=== PATIENT | male | born 1955 | race Caucasian/White ===

== ENCOUNTER → 2018-10-26 | Outpatient (CLI) | payer OTHER ==
[~2018-10-26] MED LIST: ASPIR 8181 MG PO; DRAMAMINE PO; FLECAINIDE ACET50 M2 PO; LIPITOR 20 MG T20 M1 PO; SYNTHROID125 MC1 PO; TOPROL XL25 MG PO
--- NOTE | ~2018-10-26 | P ---
[address] [address] [place] [address] PROCEDURE REPORT Name: MACY DOLAN Room #: REG Jorge Kevin#: [id number] Admission: 10/26/18 ������������������ Attend Phys: Ko Merrill MD Discharge: ������������������ Date of : 55 Report #: [id number] THIS REPORT FOR: //name// CC: MARCO Merrill PREOPERATIVE DIAGNOSIS: Palpitation. POSTOPERATIVE DIAGNOSIS: Palpitation. PROCEDURE: The patient was brought to the procedure suite in a fasting and sedated state. He was prepped and draped in a sterile fashion. I injected lidocaine at the incision site. Incision was made. The [employer] confirm implantable loop recorder with a serial #[id number] was injected under the skin without any complications. A single layer of suture was performed and surgical glue was placed to the outer skin layer. The patient had no procedure related complications. The device was set to its nominal settings. CONCLUSIONS: Successful implantation of an implantable loop recorder. ��������������������������������������������� ���������������������������������������� By: ��������������������������������������������� [id number] Ko Merrill MD /nt
[2018-10-26 08:40] VITALS: BP 149/92
== END | disposition home or self-care (01) ==
LOC: CATH 06:54
DX: R00.2 Palpitations (principal); Z79.82 Long term (current) use of aspirin; Z79.899 Other long term (current) drug therapy

== ENCOUNTER 2019-09-07 09:48 | Emergency (ER) | payer OTHER ==
[~2019-09-07] VITALS: Ht 182.9 cm; Wt 93.0 kg
[2019-09-07] MEDS ORDERED: PRADAXA150 MG PO (10:03)
[2019-09-07 10:24] LABS: ABSOLUTE NEUTROPHILS 4.8 thou/uL (1.4-8.2); BASOPHILS 0.5 % (0.0-2.0); EOSINOPHILS 1.2 % (0.0-3.0); HEMATOCRIT 40.8 % (42.0-52.0); HEMOGLOBIN 13.6 gm/dL (14.0-18.0); LYMPHOCYTES 16.3 % (24.0-44.0); MCH 30.9 pg (26.0-34.0); MCHC 33.3 g/dL (28.0-37.0); MCV 92.9 fL (80.0-100.0); MONOCYTES 7.9 % (1.0-8.0); PLATELET COUNT 190 thou/uL (150-400); POLYS 74.1 % (36.0-66.0); RBC 4.39 mil/uL (4.50-6.00); RDW 13.4 % (10.5-14.5); WBC 6.5 thou/uL (4.0-11.0)
[2019-09-07 10:33] LABS: ANION GAP 7 mmol/L (7-16); BUN 22 mg/dL (7-18); CHLORIDE 103 mmol/L (98-107); CO2 29 mmol/L (21-32); CREATININE 1.2 mg/dL (0.7-1.3); GLUCOSE 110 mg/dL (74-106); POTASSIUM 4.5 mmol/L (3.5-5.1); SODIUM 139 mmol/L (136-145)
[2019-09-07 10:41] LABS: TROPONIN-I <0.06 ng/mL (<0.06)
[2019-09-07] MEDS ORDERED: AMOXICILLIN 50500 MG PO (10:46)
[2019-09-07 11:00] VITALS: BP 130/80
--- NOTE | 2019-09-08 08:16 | EKG ---
[facility] [place] [address] ELECTROCARDIOGRAM REPORT Name: MACY DOLAN Room #: DEP [facility]#: [id number] Admission: 09/07/19 Attend Phys: Discharge: 09/07/19 Date of : 55 Report #: [id number] THIS REPORT FOR: cc: MARCO RODRIGUEZ CHRISTOPHER F DO Lundgren, Craig H. MD [facility] THIS REPORT FOR: //name// [facility] ED Test Date: 2019-09-07 Test Time: 09:50:14 Pat Name: MACY DOLAN Department: Room: Gender: Emergency Communications Operator: HEATHER : 1955 Requested By: Gallito Zhu Order Number: [id number] MD: Paolo Medina Measurements Intervals [place] Rate: 64 P: 37 [place]: 172 QRS: -2 QRSD: 98 T: -6 QT: 425 QTc: 439 Interpretive Statements Sinus rhythm Borderline T abnormalities Compared to ECG 10/29/2005 18:32:34 T-wave abnormality now present Electronically Signed On 09-08-2019 8:14:57 [employer]IPMENT by Paolo Medina [email or web address] <ELECTRONICALLY SIGNED> By: Paolo Medina MD, FACC 09/08/19 0814 0950 [id number] Paolo Medina MD, [facility] /EPI
== END 2019-09-07 11:04 | disposition home or self-care (01) ==
LOC: ER 09:48
PROVIDERS: Emergency Medicine
DX: J18.9 Pneumonia, unspecified organism (principal); I48.91 Unspecified atrial fibrillation; E78.5 Hyperlipidemia, unspecified; Z98.61 Coronary angioplasty status; Z79.82 Long term (current) use of aspirin; Z79.899 Other long term (current) drug therapy

== ENCOUNTER → 2019-09-22 | Outpatient (CLI) | payer OTHER ==
[~2019-09-22] MED LIST changes: +AMOXICILLIN 50500 MG PO; +PRADAXA150 MG PO
[2019-09-22 08:06] LABS: HEMOGLOBIN 14.7 gm/dL (14.0-18.0); MCH 30.5 pg (26.0-34.0); MCHC 32.7 g/dL (28.0-37.0); MCV 93.5 fL (80.0-100.0); RBC 4.81 mil/uL (4.50-6.00); RDW 13.6 % (10.5-14.5); WBC 5.4 thou/uL (4.0-11.0)
[2019-09-22 08:55] LABS: ALBUMIN 3.9 g/dL (3.4-5.0); CALCIUM 9.1 mg/dL (8.5-10.1); CREATININE 1.3 mg/dL (0.7-1.3); POTASSIUM 4.4 mmol/L (3.5-5.1); TOTAL BILIRUBIN 0.7 mg/dL (<0.1-1.0); TOTAL PROTEIN 6.7 g/dL (6.4-8.2)
== END ==
LOC: CAT 07:46
PROVIDERS: Internal Medicine Cardiovascular Disease
DX: Z01.818 Encounter for other preprocedural examination (principal); I25.10 Atherosclerotic heart disease of native coronary artery without angina pectoris; I48.91 Unspecified atrial fibrillation

== ENCOUNTER 2019-11-24 06:44 | Observation (INO) | payer OTHER ==
[2019-11-24] VITALS (12 sets, daily range): BP systolic 134–160; BP diastolic 76–85
[~2019-11-24] VITALS: Ht 182.9 cm; Wt 92.2 kg
[2019-11-24 07:32] LABS: ABSOLUTE NEUTROPHILS 2.5 thou/uL (1.4-8.2); BASOPHILS 0.7 % (0.0-2.0); EOSINOPHILS 3.1 % (0.0-3.0); HEMATOCRIT 43.9 % (42.0-52.0); HEMOGLOBIN 14.7 gm/dL (14.0-18.0); LYMPHOCYTES 38.9 % (24.0-44.0); MCH 31.3 pg (26.0-34.0); MCHC 33.6 g/dL (28.0-37.0); MCV 93.1 fL (80.0-100.0); MONOCYTES 9.8 % (1.0-8.0); PLATELET COUNT 188 thou/uL (150-400); POLYS 47.5 % (36.0-66.0); RBC 4.72 mil/uL (4.50-6.00); RDW 13.5 % (10.5-14.5); WBC 5.2 thou/uL (4.0-11.0)
[2019-11-24 07:36] LABS: CALCIUM 8.6 mg/dL (8.5-10.1); CREATININE 1.2 mg/dL (0.7-1.3); POTASSIUM 4.1 mmol/L (3.5-5.1)
[2019-11-24] MEDS ORDERED: FISH OIL 1,001000 M3 PO (07:36)
[2019-11-24] MEDS ORDERED: COQ-10100 MG PO (07:36)
[2019-11-24] MEDS ORDERED: PRADAXA150 MG PO (07:37)
[2019-11-24 07:42] LABS: ALBUMIN 3.7 g/dL (3.4-5.0); TOTAL BILIRUBIN 0.5 mg/dL (<0.1-1.0); TOTAL PROTEIN 6.7 g/dL (6.4-8.2)
--- NOTE | 2019-11-24 07:58 | NUR ---
THIS INTERNATIONAL CONTROLLER COMPLETED PRE-PROCEDURE SPIRITUAL CARE VISIT WITH PATIENT WELL MEETING HIS SPOUSE.
[2019-11-24 08:33] LABS: INR 1.1; PROTIME 10.9 Seconds (9.3-11.4)
--- NOTE | 2019-11-24 19:01 | NUR ---
PATIENT ARRIVED FROM EP LAB, ALERT AND ORIENTED X4, VSS AND AFEBRILE. SR-SB ON THE MONITOR, POST CARDIAC ASSESSMENT DOCUMENTED. AND WILL CONTINUE WITH POC.
[2019-11-25 00:06] VITALS: BP 118/65
[2019-11-25 04:05] VITALS: BP 135/76
--- NOTE | 2019-11-25 04:38 | NUR ---
ASSESSMENTS CHARTED, MEDS GIVEN DOCUMENTED. PATIENT RESTING IN BED DURING SHIFT. PATIENT WAS OFF BEDREST FROM AFIB ABLATION PRIOR TO SHIFT CHANGE. LORA CATHETER STILL IN PLACE DUE TO PATIENT C/O VERTIGO. PATIENT IN SINUS RHYTHM DURING SHIFT. ON ROOM AIR. LORA WAS REMOVED BY NURSE AT O430. PATIENT AMBULATED LENGTH OF ROOM WITH STANDBY ASSIST W/O COMPLAINT OF VERTIGO. PATIENT IS HOPING TO BE RELEASED THIS MORNING. FALL PRECAUTIONS IN PLACE DURING SHIFT. DENIED PAIN. PATIENT SAID HE DID NOT SLEEP WELL DURING THE NIGHT DUE TO NOISE FROM THE RADIATOR AND PATIENT NEXT DOOR.
[2019-11-25 07:40] VITALS: BP 151/89
[2019-11-25 08:56] VITALS: BP 151/89
[2019-11-25 08:57] VITALS: BP 151/89
--- NOTE | 2019-11-25 15:57 | NUR ---
DISCHARGING TO HOME. DISCHARGE INSTRUCTIONS GIVEN.
--- NOTE | 2019-12-01 16:13 | D ---
[facility] [place] [address] DISCHARGE SUMMARY Name: MACY DOLAN Room #: 209-P [facility] Reyna M.Brett#: [id number] Admission: 11/24/19 Attend Phys: Ko Merrill MD Discharge: 11/25/19 Date of : 55 Report #: [id number] THIS REPORT FOR: cc: MARCO RODRIGUEZ, Ko Mcconnell MD ~ THIS REPORT FOR: //name// CC: MARCO Merrill PREOPERATIVE DIAGNOSES: 1. Atrial fibrillation. 2. Atrial flutter. PROCEDURES PERFORMED: Atrial fibrillation and atrial flutter ablation. HISTORY: The patient is a 64-year-old male with a history of AFib, status post ablation approximately [address] Shaffer. He has recently undergone implantation of a loop recorder showing that he has been having increased episodes of symptomatic atrial fibrillation. He is here for AFib ablation. The patient underwent successful AFib ablation. He was noted to have reconnection of the left superior and left inferior pulmonary veins and the right veins remained isolated. Of note, he did have a very challenging transseptal, which took me an hour and 15 minutes due to the heart being very rotated, and intraatrial fibrosis. As mentioned above, the veins were then re-isolated and an atrial flutter ablation was also performed with evidence of bidirectional block. There were no procedure-related complications. HOSPITAL COURSE: The patient was monitored in the CCU overnight and did well. On the day of discharge, he denied any chest pain, shortness of breath, PND or orthopnea. He had no fevers or chills. PHYSICAL EXAMINATION HEART: Regular rate and rhythm. LUNGS: Clear to auscultation. ABDOMEN: Soft, nontender. EXTREMITIES: No clubbing, cyanosis, edema. GENITOURINARY: Groin showed no bruising or hematoma. As such, he was deemed stable for discharge home. He was discharged home on his current medical regimen including Pradaxa therapy. No antiarrhythmic drugs were [facility] [address] [place] [address] DISCHARGE SUMMARY Name: KELSIMACY Room #: 209-P [facility] Reyna Kevin#: [id number] Admission: 11/24/19 Attend Phys: Ko Merrill MD Discharge: 11/25/19 Date of : 55 Report #: [id number] initiated post-ablation. Discharge instructions were reviewed and he will follow up with me in 3 months. <ELECTRONICALLY SIGNED> By: Ko Merrill MD 12/01/19 [id number] [id number] Ko Merrill MD /nt
== END 2019-11-25 10:46 | disposition home or self-care (01) ==
LOC: CATH 06:44 → 2N 13:56 → CATH 15:14 → 2N 11-25 10:46
PROVIDERS: ADMIT Internal Medicine Cardiovascular Disease
DX: I48.91 Unspecified atrial fibrillation (principal); I48.92 Unspecified atrial flutter; Z03.818 Encounter for observation for suspected exposure to other biological agents ruled out
CPT/HCPCS: 62110; 62900; 65020; 65040; 70005

== ENCOUNTER → 2021-02-26 | Outpatient (CLI) | payer OTHER ==
[~2021-02-26] MED LIST changes: +COQ-10100 MG PO; +FISH OIL 1,001000 M3 PO
== END | disposition home or self-care (01) ==
LOC: CATH 06:39
PROVIDERS: ATTEND Internal Medicine Cardiovascular Disease
DX: I48.91 Unspecified atrial fibrillation (principal); I48.0 Paroxysmal atrial fibrillation; I48.3 Typical atrial flutter; I48.92 Unspecified atrial flutter; Z79.899 Other long term (current) drug therapy; Z98.890 Other specified postprocedural states; Z79.01 Long term (current) use of anticoagulants